=== PATIENT | female | born 1960 | race Caucasian/White ===

== ENCOUNTER 2017-04-08 06:09 | Day surgery (SDC) | payer MEDICARE, OTHER ==
[~2017-04-08] VITALS: Ht 170.2 cm; Wt 97.1 kg
[~2017-04-08 06:09] MED LIST: ATOR10 PO; Apap-Butalbita1 EACH PO; BENTYL10 MG PO; CLON.2 PO; CONEST.625 PO; DIAZ10 PO; DIAZ5 PO; Desyrel150 MG PO; Dicyclomine HCl10 MG PO; ESOM20 PO; ESTR.1TPBW TOP; ETOD200 PO; ETOD500CR PO; GABA600 PO; LAMICTAL PO; LAMICTAL XR200 MG PO; LORA1 PO; LORA10 PO; Loxapine10 MG PO; Loxapine25 MG PO; MELA3 PO; MELATONIN 20MG PO; MYRBETRIQ50 MG PO; NAPR220 PO; NEXIUM 24HR20 MG PO; NEXIUM 40MG PO; Omeprazole20 M1 PO; PROC10 PO; QNASL8.7 GM PO; QUET200 PO; RIZATRIPTAN10 M1 PO; RIZATRIPTAN10 MG; ROPI.25 PO; SEROQUEL 400 MG PO; TOPI100 PO; Tessalon200 MG PO; Vivelle-Dot1 EAC1 TD
[2017-04-08] MEDS ORDERED: HYDPAM50 PO (06:47)
[2017-04-08] MEDS ORDERED: CYCL10 (06:48)
[2017-04-09] MEDS ORDERED: DOCU100 PO (08:50)
[2017-04-09] MEDS ORDERED: HYDR1TAB94 PO (08:50)
[2017-04-09] MEDS ORDERED: LEVFLO500 PO (08:50)
== END 2017-04-09 10:05 | disposition home or self-care (01) ==
LOC: ORSCMMR 06:09 → SURS 08:43
PROVIDERS: Urology
PROC: 0TSD0ZZ Reposition Urethra, Open Approach (ICD-10-PCS; principal; 2017-04-08 07:30)
DX: N39.3 Stress incontinence (female) (male) (principal); J44.9 Chronic obstructive pulmonary disease, unspecified; F17.210 Nicotine dependence, cigarettes, uncomplicated; F31.9 Bipolar disorder, unspecified; M79.7 Fibromyalgia; E66.9 Obesity, unspecified; Z68.34 Body mass index [BMI] 34.0-34.9, adult; Z79.899 Other long term (current) drug therapy
CPT/HCPCS: C1771; J0690; J1100; J1580; J1885; J2250; J2405; J3010; J7120

== ENCOUNTER → 2018-09-08 | Outpatient (CLI) | payer MEDICARE, OTHER ==
[~2018-09-08] MED LIST changes: +CYCL10; +DOCU100 PO; +HYDPAM50 PO; +HYDR1TAB94 PO; +LEVFLO500 PO
[2018-09-08 10:59] LABS: BASOPHILS ABSOLUTE AUTO 0.03 K/mm3 (0.00-0.23); BASOPHILS PERCENT AUTO 0 % (0-2); EOSINOPHILS ABSOLUTE AUTO 0.29 K/mm3 (0.00-0.68); EOSINOPHILS PERCENT AUTO 4 % (0-6); Hematocrit 42.4 % (33.0-51.0); Hemoglobin 14.6 g/dL (11.5-16.0); IMMATURE GRAN ABSOLUTE AUTO 0.02 K/mm3 (0.00-0.10); IMMATURE GRAN PERCENT AUTO 0 % (0-1); LYMPHOCYTES ABSOLUTE AUTO 2.95 K/mm3 (0.84-5.20); LYMPHOCYTES PERCENT AUTO 39 % (21-46); MONOCYTES ABSOLUTE AUTO 0.57 K/mm3 (0.16-1.47); MONOCYTES PERCENT AUTO 8 % (4-13); Mean Corpuscular HGB Conc 34.4 g/dL (31.5-36.5); Mean Corpuscular Volume 99 fL (80-100); Mean Platelet Volume 8.4 fL (9.1-12.4); NEUTROPHILS ABSOLUTE AUTO 3.68 K/mm3 (1.96-9.15); NEUTROPHILS PERCENT AUTO 49 % (41-73); Platelet Count 242 K/mm3 (150-400); RDW Coefficient Variation 11.9 % (11.7-14.2); RDW Standard Deviation 43.6 fL (35.1-46.3); White Blood Cell Count 7.54 K/mm3 (4.00-11.30)
[2018-09-08 11:17] LABS: Albumin/Globulin Ratio 1.3 (0.8-1.8); Bilirubin, Total 0.1 mg/dL (0.1-1.0); Bun/Creatinine Ratio 12.4 (12.0-20.0); Calcium, Blood 9.4 mg/dL (8.5-10.1); Creatinine, Blood 1.05 mg/dL (0.40-1.00); Globulin, Blood 3.2 g/dL (2.2-4.0); Total Protein, Blood 7.2 g/dL (6.4-8.2)
== END | disposition home or self-care (01) ==
LOC: LAB SHORT 10:52 → LAB EV 10:52
PROVIDERS: Nurse Practitioner Family
DX: I95.89 Other hypotension (principal)
CPT/HCPCS: 80053; 85025

== ENCOUNTER 2019-04-08 08:49 | Emergency (ER) | payer MEDICARE, OTHER ==
[~2019-04-08] VITALS: Ht 170.2 cm; Wt 79.4 kg
[2019-04-08 09:33] LABS: BASOPHILS ABSOLUTE AUTO 0.03 K/mm3 (0.00-0.23); BASOPHILS PERCENT AUTO 1 % (0-2); EOSINOPHILS ABSOLUTE AUTO 0.31 K/mm3 (0.00-0.68); EOSINOPHILS PERCENT AUTO 5 % (0-6); Hematocrit 42.3 % (33.0-51.0); IMMATURE GRAN ABSOLUTE AUTO 0.01 K/mm3 (0.00-0.10); IMMATURE GRAN PERCENT AUTO 0 % (0-1); LYMPHOCYTES ABSOLUTE AUTO 2.67 K/mm3 (0.84-5.20); LYMPHOCYTES PERCENT AUTO 42 % (21-46); MONOCYTES ABSOLUTE AUTO 0.57 K/mm3 (0.16-1.47); MONOCYTES PERCENT AUTO 9 % (4-13); Mean Corpuscular HGB 34.4 pg (26.0-34.0); Mean Corpuscular HGB Conc 33.1 g/dL (31.5-36.5); Mean Corpuscular Volume 104 fL (80-100); Mean Platelet Volume 8.5 fL (9.1-12.4); NEUTROPHILS PERCENT AUTO 44 % (41-73); Platelet Count 248 K/mm3 (150-400); RDW Coefficient Variation 11.6 % (11.7-14.2); RDW Standard Deviation 44.3 fL (35.1-46.3); Red Blood Cell Count 4.07 M/mm3 (3.80-5.20); White Blood Cell Count 6.39 K/mm3 (4.00-11.30)
[2019-04-08] MEDS ORDERED: OMEP20ER PO (09:33)
[2019-04-08] MEDS ORDERED: Trazodone HCl300 MG PO (09:33)
[2019-04-08] MEDS ORDERED: ATOR40TA PO (09:33)
[2019-04-08] MEDS ORDERED: DIAZ10 PO (09:33)
[2019-04-08] MEDS ORDERED: Requip3 MG PO (09:34)
[2019-04-08] MEDS ORDERED: LAMICTAL XR200 MG PO (09:34)
[2019-04-08] MEDS ORDERED: GABAPENTIN600 MG PO (09:35)
[2019-04-08] MEDS ORDERED: DOXE25 PO (09:36)
[2019-04-08] MEDS ORDERED: PROM25 PO (09:37)
[2019-04-08] MEDS ORDERED: Dicyclomine HCl10 MG PO (09:37)
[2019-04-08] MEDS ORDERED: Imitrex100 MG PO (09:37)
[2019-04-08] MEDS ORDERED: Ativan1 MG PO (09:37)
[2019-04-08] MEDS ORDERED: CYCL10 PO (09:38)
[2019-04-08] MEDS ORDERED: Sudogest60 MG PO (09:38)
[2019-04-08 09:51] LABS: Alanine Aminotransfer (ALT/SGP 37 U/L (12-78); Albumin, Blood 3.4 g/dL (3.4-5.0); Albumin/Globulin Ratio 1.1 (0.8-1.8); Alk Phos 44 U/L (50-136); Anion Gap 6 mmol/L (6-16); Aspartate Aminotrans (AST/SGOT 15 U/L (12-37); Bilirubin, Total 0.2 mg/dL (0.1-1.0); Blood Urea Nitrogen 19 mg/dL (8-24); Bun/Creatinine Ratio 23.8 (12.0-20.0); CO2, Blood 26 mmol/L (21-32); Calcium, Blood 8.9 mg/dL (8.5-10.1); Chloride, Blood 109 mmol/L (98-108); Globulin, Blood 3.1 g/dL (2.2-4.0); Glomerular Filtration Rate >60 (60-); Glucose, Blood 112 mg/dL (70-99); Magnesium, Blood 1.9 mg/dL (1.6-2.4); Sodium, Blood 141 mmol/L (136-145); Total Protein, Blood 6.5 g/dL (6.4-8.2)
== END 2019-04-08 11:08 | disposition home or self-care (01) ==
LOC: ER 08:49
PROVIDERS: Emergency Medicine
DX: R55 Syncope and collapse (principal); S16.1XXA Strain of muscle, fascia and tendon at neck level, initial encounter; S09.90XA Unspecified injury of head, initial encounter; S09.93XA Unspecified injury of face, initial encounter; Z79.899 Other long term (current) drug therapy; F31.9 Bipolar disorder, unspecified; Z86.73 Personal history of transient ischemic attack (TIA), and cerebral infarction without residual deficits; F17.210 Nicotine dependence, cigarettes, uncomplicated; W18.30XA Fall on same level, unspecified, initial encounter
CPT/HCPCS: 70450; 72070; 72100; 72125; 80053; 83735; 85025; 93005; 93010; 96374; 96375; 99285-25; J2405; J3010

== ENCOUNTER → 2019-08-27 | Outpatient (CLI) | payer MEDICARE, OTHER ==
[~2019-08-27] MED LIST changes: +ATOR40TA PO; +Ativan1 MG PO; +CYCL10 PO; +DOXE25 PO; +GABAPENTIN600 MG PO; +Imitrex100 MG PO; +OMEP20ER PO; +PROM25 PO; +Requip3 MG PO; +Sudogest60 MG PO; +Trazodone HCl300 MG PO
[2019-08-27 10:58] LABS: Bun/Creatinine Ratio 16.7 (12.0-20.0); Creatinine, Blood 1.08 mg/dL (0.40-1.00); Potassium, Blood 4.1 mmol/L (3.5-5.5)
== END | disposition home or self-care (01) ==
LOC: LAB SHORT 10:44 → LAB EV 10:44
PROVIDERS: Physician Assistant
DX: K04.7 Periapical abscess without sinus (principal)
CPT/HCPCS: 80048

== ENCOUNTER → 2019-12-17 | Outpatient (CLI) | payer MEDICARE, OTHER ==
[2019-12-17 11:20] LABS: Albumin, Blood 3.9 g/dL (3.4-5.0); Anion Gap 11 mmol/L (6-16); Blood Urea Nitrogen 11 mg/dL (8-24); Bun/Creatinine Ratio 10.7 (12.0-20.0); CO2, Blood 25 mmol/L (21-32); Chloride, Blood 102 mmol/L (98-108); Creatinine, Blood 1.03 mg/dL (0.40-1.00); Glomerular Filtration Rate 55 (60-); Glucose, Blood 120 mg/dL (70-99); Phosphorus, Blood 3.4 mg/dL (2.5-4.9); Potassium, Blood 4.2 mmol/L (3.5-5.5); Sodium, Blood 138 mmol/L (136-145)
== END | disposition home or self-care (01) ==
LOC: RAD SHORT 10:52 → LAB EV 10:52
PROVIDERS: Nurse Practitioner Family
DX: R94.4 Abnormal results of kidney function studies (principal)
CPT/HCPCS: 36415; 80069

== ENCOUNTER 2019-12-28 07:03 | Day surgery (SDC) | payer MEDICARE, OTHER | END 2019-12-28 22:40 | disposition home or self-care (01) | LOC: ORSCMMR 07:03 | PROC: 0W3P8ZZ Control Bleeding in Gastrointestinal Tract, Via Natural or Artificial Opening Endoscopic (ICD-10-PCS; principal; 2019-12-28) | PROC: 0DB58ZX Excision of Esophagus, Via Natural or Artificial Opening Endoscopic, Diagnostic (ICD-10-PCS; principal; 2019-12-28) | PROC: 0DB48ZX Excision of Esophagogastric Junction, Via Natural or Artificial Opening Endoscopic, Diagnostic (ICD-10-PCS; principal; 2019-12-28) | PROC: 0DB78ZX Excision of Stomach, Pylorus, Via Natural or Artificial Opening Endoscopic, Diagnostic (ICD-10-PCS; principal; 2019-12-28) | PROC: 0DBN8ZX Excision of Sigmoid Colon, Via Natural or Artificial Opening Endoscopic, Diagnostic (ICD-10-PCS; principal; 2019-12-28) | DX: R13.14 Dysphagia, pharyngoesophageal phase (principal); K62.5 Hemorrhage of anus and rectum; B37.81 Candidal esophagitis; D12.5 Benign neoplasm of sigmoid colon; K21.9 Gastro-esophageal reflux disease without esophagitis; R10.13 Epigastric pain; R11.0 Nausea; K25.4 Chronic or unspecified gastric ulcer with hemorrhage; K64.8 Other hemorrhoids; K64.4 Residual hemorrhoidal skin tags; Z86.010 Personal history of colon polyps; Z86.73 Personal history of transient ischemic attack (TIA), and cerebral infarction without residual deficits; F31.9 Bipolar disorder, unspecified; F17.210 Nicotine dependence, cigarettes, uncomplicated; Z79.899 Other long term (current) drug therapy ==

== ENCOUNTER 2020-03-01 06:59 | Day surgery (SDC) | payer MEDICARE, OTHER ==
[~2020-03-01] VITALS: Ht 170.2 cm; Wt 98.7 kg
[~2020-03-01 06:59] MED LIST changes: +QUET300 PO
[2020-03-01] MEDS ORDERED: LINZESS72 MCG PO (07:23)
--- NOTE | 2020-03-01 07:28 | NUR ---
PT ADMITTED TO [facility]. AGREES WITH PLANNED PROCEDURE. LUNG SOUNDS CLEAR.
--- NOTE | 2020-03-01 08:03 | NUR ---
03/01/20 0803 Mena Nicole History, Chart, Medications and Allergies reviewed before start of procedure. PATIENT CONFIRMS NPO STATUS AND AGREES WITH SCHEDULED PROCEDURE. MONITOR INTACT WITH CONTINUOUS PULSE OXIMETRY AND INTERMITTENT BP. O2 VIA N/C INTACT THROUGHOUT SEDATION/PROCEDURE. 3-LEAD EKG REVIEWED WITH PHYSICIAN PRIOR TO START OF PROCEDURE. PATIENT DETERMINED TO BE ASA APPROPRIATE FOR PROPOFOL SEDATION PRIOR TO START OF PROCEDURE BY DR. CRANE. Bite Block Placed. HURRICAINE SPRAY TO OROPHARYX.
--- NOTE | 2020-03-01 08:53 | NUR ---
Patient up to Ambulate independently. Gait steady. Discharge instructions reviewed with patient. Patient verbalizes understanding. Copy given to patient to take home. Patient States Post-Procedure ride home has been arranged. Discharged via wheelchair to private car for ride home. SPOKE WITH DR CRANE IN REGARDS TO PT ABD PAIN. OFFERED TO GIVE NAUSEA MED, PT SAID SHE HAS NAUSEA MED AT HOME. INTSTRUCTED PT TO TAKE TYLENOL AND NAUSEA MEDICINE AT HOME. INSTRUCTED TO CALL DR CRANE WITH ANY INCREASED CHANGES.
== END 2020-03-01 09:00 | disposition home or self-care (01) ==
LOC: ORSCMMR 06:59 → ORD 08:00 → ORSCMMR 09:00
PROVIDERS: Internal Medicine Gastroenterology
PROC: 0DB98ZX Excision of Duodenum, Via Natural or Artificial Opening Endoscopic, Diagnostic (ICD-10-PCS; principal; 2020-03-01 08:00)
PROC: 0DB68ZX Excision of Stomach, Via Natural or Artificial Opening Endoscopic, Diagnostic (ICD-10-PCS; principal; 2020-03-01 08:00)
DX: R13.10 Dysphagia, unspecified (principal); K25.4 Chronic or unspecified gastric ulcer with hemorrhage; K26.4 Chronic or unspecified duodenal ulcer with hemorrhage; F31.9 Bipolar disorder, unspecified; Z86.73 Personal history of transient ischemic attack (TIA), and cerebral infarction without residual deficits; Z79.899 Other long term (current) drug therapy; F17.210 Nicotine dependence, cigarettes, uncomplicated
CPT/HCPCS: 88305; 88342; J2704; J7120

== ENCOUNTER 2020-05-22 08:39 | Day surgery (SDC) | payer MEDICARE, OTHER ==
[~2020-05-22] VITALS: Ht 170.2 cm; Wt 104.0 kg
[~2020-05-22 08:39] MED LIST changes: +LINZESS72 MCG PO; +NURTEC ODT75 MG PO
--- NOTE | 2020-05-22 09:52 | NUR ---
Ambulatory in Day Surgery History, Chart, Medications and Allergies reviewed before start of procedure. Lungs clear T/O to Auscultation. Patient confirms NPO status and agrees with scheduled surgery. Pre-Op teaching done. Pt verbalizes understanding. Patient States Post-Procedure ride home has been arranged.
--- NOTE | 2020-05-22 09:56 | NUR ---
05/22/20 0956 Jane Ho PATIENT DETERMINED TO BE ASA APPROPRIATE FOR PROPOFOL SEDATION PRIOR TO START OF PROCEDURE BY DR. CRANE. 3-LEAD EKG REVIEWED WITH PHYSICIAN PRIOR TO START OF PROCEDURE. PATIENT CONFIRMS NPO STATUS AND AGREES WITH SCHEDULED PROCEDURE. History, Chart, Medications and Allergies reviewed before start of procedure. MONITOR INTACT WITH CONTINUOUS PULSE OXIMETRY AND INTERMITTENT BP. O2 VIA POM @ 10L INTACT THROUGHOUT SEDATION/PROCEDURE.
[2020-05-22 11:16] LABS: Hematocrit 41.7 % (33.0-51.0); Hemoglobin 13.7 g/dL (11.5-16.0); Mean Corpuscular HGB 33.1 pg (26.0-34.0); Mean Corpuscular HGB Conc 32.9 g/dL (31.5-36.5); Mean Corpuscular Volume 101 fL (80-100); Mean Platelet Volume 8.2 fL (9.1-12.4); Platelet Count 258 K/mm3 (150-400); RDW Coefficient Variation 12.9 % (11.7-14.2); RDW Standard Deviation 47.8 fL (35.1-46.3); Red Blood Cell Count 4.14 M/mm3 (3.80-5.20); White Blood Cell Count 6.41 K/mm3 (4.00-11.30)
== END 2020-05-22 11:36 | disposition home or self-care (01) ==
LOC: ORSCMMR 08:39 → ORD 08:39 → ORSCMMR 08:40 → ORD 09:30
PROVIDERS: Internal Medicine Gastroenterology
PROC: 0D758ZZ Dilation of Esophagus, Via Natural or Artificial Opening Endoscopic (ICD-10-PCS; principal; 2020-05-22 09:30)
PROC: 0DB78ZX Excision of Stomach, Pylorus, Via Natural or Artificial Opening Endoscopic, Diagnostic (ICD-10-PCS; principal; 2020-05-22 09:30)
PROC: 0DB58ZX Excision of Esophagus, Via Natural or Artificial Opening Endoscopic, Diagnostic (ICD-10-PCS; principal; 2020-05-22 09:30)
DX: R10.13 Epigastric pain (principal); B37.81 Candidal esophagitis; K29.70 Gastritis, unspecified, without bleeding; K25.4 Chronic or unspecified gastric ulcer with hemorrhage; Z86.73 Personal history of transient ischemic attack (TIA), and cerebral infarction without residual deficits; F31.9 Bipolar disorder, unspecified; Z79.899 Other long term (current) drug therapy; F17.210 Nicotine dependence, cigarettes, uncomplicated
CPT/HCPCS: 85027; 88305; 88312; A9270; C1726; J2250; J2405; J2704; J7120

== ENCOUNTER → 2020-10-30 | Outpatient (CLI) | payer MEDICARE, OTHER ==
[~2020-10-30] MED LIST changes: +EMGALITY120 MG/1 M SC; +LAMOTRIGINE100 M1 PO; +Norco 5-325 Ta1 EACH PO; +PALIPERIDONE ER6 MG PO; +PANTOPRAZOLE SO40 M2 PO; +QUETIAPINE FUM200 M6 PO; +TRAZ150T57 PO; +UBRELVY100 MG PO; +XARELTO20 MG PO
[2020-10-30 12:47] LABS: BASOPHILS ABSOLUTE AUTO 0.02 K/mm3 (0.00-0.23); BASOPHILS PERCENT AUTO 0 % (0-2); EOSINOPHILS ABSOLUTE AUTO 0.11 K/mm3 (0.00-0.68); EOSINOPHILS PERCENT AUTO 2 % (0-6); Hematocrit 45.2 % (33.0-51.0); IMMATURE GRAN ABSOLUTE AUTO 0.02 K/mm3 (0.00-0.10); IMMATURE GRAN PERCENT AUTO 0 % (0-1); LYMPHOCYTES ABSOLUTE AUTO 2.19 K/mm3 (0.84-5.20); LYMPHOCYTES PERCENT AUTO 39 % (21-46); MONOCYTES ABSOLUTE AUTO 0.42 K/mm3 (0.16-1.47); MONOCYTES PERCENT AUTO 7 % (4-13); Mean Corpuscular HGB 33.7 pg (26.0-34.0); Mean Corpuscular HGB Conc 33.2 g/dL (31.5-36.5); Mean Corpuscular Volume 102 fL (80-100); Mean Platelet Volume 8.5 fL (9.1-12.4); NEUTROPHILS PERCENT AUTO 51 % (41-73); Platelet Count 259 K/mm3 (150-400); RDW Standard Deviation 45.7 fL (35.1-46.3); Red Blood Cell Count 4.45 M/mm3 (3.80-5.20); White Blood Cell Count 5.66 K/mm3 (4.00-11.30)
[2020-10-30 13:00] LABS: Albumin, Blood 3.9 g/dL (3.4-5.0); Bilirubin, Total 0.3 mg/dL (0.1-1.0); Bun/Creatinine Ratio 11.8 (12.0-20.0); Calcium, Blood 9.9 mg/dL (8.5-10.1); Creatinine, Blood 1.02 mg/dL (0.40-1.00); Globulin, Blood 3.9 g/dL (2.2-4.0); Potassium, Blood 4.4 mmol/L (3.5-5.5); Total Protein, Blood 7.8 g/dL (6.4-8.2)
== END | disposition home or self-care (01) ==
LOC: LAB 12:02 → LAB SHORT 12:02
PROVIDERS: Internal Medicine
DX: R10.9 Unspecified abdominal pain (principal)
CPT/HCPCS: 36415; 80053; 85025

== ENCOUNTER 2020-11-09 10:34 | Observation (INO) | payer MEDICARE, OTHER ==
[~2020-11-09] VITALS: Ht 172.7 cm; Wt 104.3 kg
[~2020-11-09 10:34] MED LIST changes: -EMGALITY120 MG/1 M SC; -LAMOTRIGINE100 M1 PO; -Norco 5-325 Ta1 EACH PO; -PALIPERIDONE ER6 MG PO; -PANTOPRAZOLE SO40 M2 PO; -QUETIAPINE FUM200 M6 PO; -TRAZ150T57 PO; -UBRELVY100 MG PO; -XARELTO20 MG PO
[2020-11-09 10:57] LABS: BASOPHILS ABSOLUTE AUTO 0.03 K/mm3 (0.00-0.23); BASOPHILS PERCENT AUTO 1 % (0-2); EOSINOPHILS ABSOLUTE AUTO 0.15 K/mm3 (0.00-0.68); EOSINOPHILS PERCENT AUTO 3 % (0-6); Hematocrit 42.5 % (33.0-51.0); Hemoglobin 13.9 g/dL (11.5-16.0); IMMATURE GRAN ABSOLUTE AUTO 0.01 K/mm3 (0.00-0.10); IMMATURE GRAN PERCENT AUTO 0 % (0-1); LYMPHOCYTES ABSOLUTE AUTO 2.45 K/mm3 (0.84-5.20); LYMPHOCYTES PERCENT AUTO 48 % (21-46); MONOCYTES ABSOLUTE AUTO 0.41 K/mm3 (0.16-1.47); MONOCYTES PERCENT AUTO 8 % (4-13); Mean Corpuscular HGB 33.5 pg (26.0-34.0); Mean Corpuscular HGB Conc 32.7 g/dL (31.5-36.5); Mean Corpuscular Volume 102 fL (80-100); Mean Platelet Volume 8.5 fL (9.1-12.4); NEUTROPHILS ABSOLUTE AUTO 2.04 K/mm3 (1.96-9.15); NEUTROPHILS PERCENT AUTO 40 % (41-73); Platelet Count 223 K/mm3 (150-400); RDW Coefficient Variation 12.1 % (11.7-14.2); RDW Standard Deviation 45.8 fL (35.1-46.3); Red Blood Cell Count 4.15 M/mm3 (3.80-5.20); White Blood Cell Count 5.09 K/mm3 (4.00-11.30)
[2020-11-09 11:15] LABS: Alanine Aminotransfer (ALT/SGP 33 U/L (12-78); Albumin, Blood 3.3 g/dL (3.4-5.0); Alk Phos 46 U/L (50-136); Anion Gap 6 mmol/L (6-16); Aspartate Aminotrans (AST/SGOT 21 U/L (12-37); Bilirubin, Total 0.2 mg/dL (0.1-1.0); Blood Urea Nitrogen 15 mg/dL (8-24); Bun/Creatinine Ratio 15.5 (12.0-20.0); CO2, Blood 22 mmol/L (21-32); Calcium, Blood 8.8 mg/dL (8.5-10.1); Chloride, Blood 112 mmol/L (98-108); Creatinine, Blood 0.97 mg/dL (0.40-1.00); Ethanol (Alcohol), Blood, Med <3 mg/dL; Globulin, Blood 3.3 g/dL (2.2-4.0); Glomerular Filtration Rate 59 (60-); Glucose, Blood 107 mg/dL (70-99); Potassium, Blood 4.3 mmol/L (3.5-5.5); Sodium, Blood 140 mmol/L (136-145); Total Protein, Blood 6.6 g/dL (6.4-8.2); Troponin I <0.015 ng/mL (0.000-0.040)
[2020-11-09] MEDS ORDERED: LAMOTRIGINE100 M1 PO (12:16)
[2020-11-09] MEDS ORDERED: QUETIAPINE FUM200 M6 PO (12:16)
[2020-11-09] MEDS ORDERED: TRAZ150T57 PO (12:16)
[2020-11-09] MEDS ORDERED: EMGALITY120 MG/1 M SC (12:16)
[2020-11-09] MEDS ORDERED: PALIPERIDONE ER6 MG PO (12:30)
[2020-11-09] MEDS ORDERED: UBRELVY100 MG PO (12:32)
[2020-11-09] MEDS ORDERED: PANTOPRAZOLE SO40 M2 PO (13:00)
[2020-11-10] MEDS ORDERED: XARELTO20 MG PO (12:59)
[2020-11-10] MEDS ORDERED: Norco 5-325 Ta1 EACH PO (12:59)
== END 2020-11-10 14:10 | disposition home or self-care (01) ==
LOC: ER 10:34 → SURS 10:35
PROVIDERS: Emergency Medicine; Orthopaedic Surgery; ADMIT Student in an Organized Health Care Education/Training Program
PROC: 0QSH04Z Reposition Left Tibia with Internal Fixation Device, Open Approach (ICD-10-PCS; principal; 2020-11-09 13:30)
DX: S82.302A Unspecified fracture of lower end of left tibia, initial encounter for closed fracture (principal); S82.832A Other fracture of upper and lower end of left fibula, initial encounter for closed fracture; W19.XXXA Unspecified fall, initial encounter; F41.9 Anxiety disorder, unspecified; J44.9 Chronic obstructive pulmonary disease, unspecified; E66.9 Obesity, unspecified; R73.03 Prediabetes; R42 Dizziness and giddiness; F17.210 Nicotine dependence, cigarettes, uncomplicated; Z68.35 Body mass index [BMI] 35.0-35.9, adult
CPT/HCPCS: 27825; 36415; 71045; 73560-LT; 73600; 80053; 83690; 83880; 84484; 85025; 93005; 93010; 96365; 96366; 96374-59; 96375-59; 97110; 97162; 99152; 99285-25; A9270; C1713; G0378; G0480; J0690; J1100; J1170; J1630; J1650; J1885; J2060; J2250; J2370; J2405; J2704; J2795; J3010; J7030; J7120

== ENCOUNTER → 2021-09-19 | Outpatient (CLI) | payer MEDICARE, OTHER ==
[~2021-09-19] MED LIST changes: +EMGALITY120 MG/1 M SC; +LAMOTRIGINE100 M1 PO; +Norco 5-325 Ta1 EACH PO; +PALIPERIDONE ER6 MG PO; +PANTOPRAZOLE SO40 M2 PO; +QUETIAPINE FUM200 M6 PO; +TRAZ150T57 PO; +UBRELVY100 MG PO; +XARELTO20 MG PO
== END | disposition home or self-care (01) ==
LOC: LAB SHORT 17:06 → LAB 17:06
DX: N39.0 Urinary tract infection, site not specified (principal); R10.9 Unspecified abdominal pain
CPT/HCPCS: 87086

== ENCOUNTER → 2022-02-28 | Outpatient (CLI) | payer MEDICARE, OTHER ==
[~2022-02-28] MED LIST changes: +ABILIFY MYCITE10 M2 PO; +CLIMARA1 EACH PO; +DONEPEZIL HCL10 MG PO; +FAMO20 PO; +MIDO5 PO; +ROPINIROLE HCL3 M2 PT; +ZONI100 PO
[2022-02-28 15:50] LABS: BASOPHILS ABSOLUTE AUTO 0.03 K/mm3 (0.00-0.23); BASOPHILS PERCENT AUTO 1 % (0-2); EOSINOPHILS ABSOLUTE AUTO 0.18 K/mm3 (0.00-0.68); EOSINOPHILS PERCENT AUTO 4 % (0-6); Hematocrit 39.2 % (33.0-51.0); Hemoglobin 13.5 g/dL (11.5-16.0); IMMATURE GRAN PERCENT AUTO 0 % (0-1); LYMPHOCYTES ABSOLUTE AUTO 2.22 K/mm3 (0.84-5.20); LYMPHOCYTES PERCENT AUTO 49 % (21-46); MONOCYTES ABSOLUTE AUTO 0.39 K/mm3 (0.16-1.47); MONOCYTES PERCENT AUTO 9 % (4-13); Mean Corpuscular HGB 34.8 pg (26.0-34.0); Mean Corpuscular HGB Conc 34.4 g/dL (31.5-36.5); Mean Corpuscular Volume 101 fL (80-100); Mean Platelet Volume 8.8 fL (9.1-12.4); NEUTROPHILS ABSOLUTE AUTO 1.75 K/mm3 (1.96-9.15); NEUTROPHILS PERCENT AUTO 38 % (41-73); Platelet Count 208 K/mm3 (150-400); RDW Coefficient Variation 12.4 % (11.7-14.2); RDW Standard Deviation 46.8 fL (35.1-46.3); Red Blood Cell Count 3.88 M/mm3 (3.80-5.20); White Blood Cell Count 4.57 K/mm3 (4.00-11.30)
[2022-02-28 17:33] LABS: Bun/Creatinine Ratio 12.5 (12.0-20.0); Calcium, Blood 8.8 mg/dL (8.5-10.1); Creatinine, Blood 0.8 mg/dL (0.40-1.00); Potassium, Blood 4.1 mmol/L (3.5-5.5)
== END | disposition home or self-care (01) ==
LOC: LAB SHORT 13:59 → LAB 13:59
PROVIDERS: Orthopaedic Surgery
DX: Z01.818 Encounter for other preprocedural examination (principal); M25.572 Pain in left ankle and joints of left foot; Z96.9 Presence of functional implant, unspecified
CPT/HCPCS: 36415; 80048; 85025

== ENCOUNTER 2022-03-03 11:17 | Day surgery (SDC) | payer MEDICARE, OTHER ==
[~2022-03-03] VITALS: Ht 170.2 cm; Wt 80.0 kg
[~2022-03-03 11:17] MED LIST changes: -ABILIFY MYCITE10 M2 PO; -CLIMARA1 EACH PO; -DONEPEZIL HCL10 MG PO; -FAMO20 PO; -MIDO5 PO; -ROPINIROLE HCL3 M2 PT; -ZONI100 PO
[2022-03-03] MEDS ORDERED: DONEPEZIL HCL10 MG PO (13:22)
[2022-03-03] MEDS ORDERED: CLIMARA1 EACH PO (13:22)
[2022-03-03] MEDS ORDERED: MIDO5 PO (13:23)
[2022-03-03] MEDS ORDERED: FAMO20 PO (13:23)
[2022-03-03] MEDS ORDERED: ROPINIROLE HCL3 M2 PT (13:24)
[2022-03-03] MEDS ORDERED: HYDPAM50 PO (13:25)
[2022-03-03] MEDS ORDERED: ZONI100 PO (13:26)
[2022-03-03] MEDS ORDERED: ABILIFY MYCITE10 M2 PO (13:26)
--- NOTE | 2022-03-03 14:00 | NUR ---
History, Chart, Medications and Allergies reviewed before start of procedure. Lungs clear T/O to Auscultation. Patient confirms NPO status and agrees with scheduled surgery. Pre-Op teaching done. Pt verbalizes understanding. Patient reports completing Chlorhexadine shower X2 prior to admission to hospital.
--- NOTE | 2022-03-03 16:52 | NUR ---
PT TAKING SIPS OF FLUID. CMS INTACT TO LEFT ANKLE, MOVES TOES WELL.
--- NOTE | 2022-03-03 17:03 | NUR ---
Pt reports ready to get up and use the bathroom and get dressed. Iv dc intact. Pt to bathroom via wheelchair and assisted by Mariah Messina rn.
--- NOTE | 2022-03-03 17:16 | NUR ---
Patient States Post-Procedure ride home has been arranged. Discharge instructions reviewed with patient. Patient verbalizes understanding. Copy given to patient to take home. Discharged via wheelchair to private car for ride home. PT HOME WITH S/O. PT VERY APPRECIATED OF CARE
== END 2022-03-03 23:31 | disposition home or self-care (01) ==
LOC: ORSCMMR 11:17 → ORD 14:15 → ORSCMMR 14:15 → ORSCSDS 03-26 11:30
PROVIDERS: Orthopaedic Surgery
PROC: 0QPH04Z Removal of Internal Fixation Device from Left Tibia, Open Approach (ICD-10-PCS; principal; 2022-03-03 14:15)
DX: T84.9XXA Unspecified complication of internal orthopedic prosthetic device, implant and graft, initial encounter (principal); F17.210 Nicotine dependence, cigarettes, uncomplicated; G47.33 Obstructive sleep apnea (adult) (pediatric); E11.9 Type 2 diabetes mellitus without complications; Z86.73 Personal history of transient ischemic attack (TIA), and cerebral infarction without residual deficits; F31.9 Bipolar disorder, unspecified; Z79.899 Other long term (current) drug therapy
CPT/HCPCS: J0690; J1100; J1885; J2250; J2405; J2704; J2765; J3010; J7120

== ENCOUNTER 2022-08-12 08:17 | Inpatient (IN) | payer MEDICARE, OTHER ==
[~2022-08-12] VITALS: Ht 170.2 cm; Wt 86.3 kg
[2022-08-12] VITALS (47 sets, daily range): BP systolic 72–150; BP diastolic 45–119
[~2022-08-12 08:17] MED LIST changes: +ABILIFY MYCITE10 M2 PO; +CLIMARA1 EACH PO; +DONEPEZIL HCL10 MG PO; +FAMO20 PO; +MIDO5 PO; +ROPINIROLE HCL3 M2 PO; +ZONI100 PO
[2022-08-12 08:40] LABS: Calcium, Ionized (POC) 1.14 mmol/L (1.10-1.46); Chloride (POC) 106 mmol/L (98-108); Creatinine (POC) 1.1 mg/dL (0.6-1.0); Glucose (ISTAT POC) 229 mg/dL (70-99); Hemoglobin (POC) 13.9 g/dL (12.0-16.0); Potassium (POC) 7.6 mmol/L (3.5-5.5); Sodium (POC) 133 mmol/L (135-148); Total CO2 (POC) 18 mmol/L (21-32)
[2022-08-12 08:49] LABS: BASOPHILS ABSOLUTE AUTO 0.03 K/mm3 (0.00-0.23); BASOPHILS PERCENT AUTO 1 % (0-2); EOSINOPHILS ABSOLUTE AUTO 0.07 K/mm3 (0.00-0.68); EOSINOPHILS PERCENT AUTO 1 % (0-6); Hematocrit 40.2 % (33.0-51.0); Hemoglobin 12.9 g/dL (11.5-16.0); IMMATURE GRAN ABSOLUTE AUTO 0.09 K/mm3 (0.00-0.10); IMMATURE GRAN PERCENT AUTO 1 % (0-1); LYMPHOCYTES PERCENT AUTO 59 % (21-46); MONOCYTES ABSOLUTE AUTO 0.35 K/mm3 (0.16-1.47); MONOCYTES PERCENT AUTO 6 % (4-13); Mean Corpuscular HGB 34.1 pg (26.0-34.0); Mean Corpuscular HGB Conc 32.1 g/dL (31.5-36.5); Mean Corpuscular Volume 106 fL (80-100); Mean Platelet Volume 8.5 fL (9.1-12.4); NEUTROPHILS ABSOLUTE AUTO 2.03 K/mm3 (1.96-9.15); NEUTROPHILS PERCENT AUTO 32 % (41-73); Platelet Count 197 K/mm3 (150-400); RDW Coefficient Variation 12.6 % (11.7-14.2); RDW Standard Deviation 49.8 fL (35.1-46.3); Red Blood Cell Count 3.78 M/mm3 (3.80-5.20); White Blood Cell Count 6.27 K/mm3 (4.00-11.30)
[2022-08-12 09:27] LABS: D-Dimer, Quantitative 8.56 mg/L FEU (0.00-0.52); International Normalized Ratio 1.04; Prothrombin Time Results 10.9 Sec (9.7-11.5)
[2022-08-12 09:42] LABS: Source, Urine Foley catheter
[2022-08-12 09:54] LABS: Appearance, Urine Hazy (Clear); Bilirubin, Urine Neg (Neg); Blood, Urine 3+ (Neg); Color, Urine Yellow (P-Yellow); Glucose Qualitative, Urine Neg (Neg); Ketones, Urine Neg (Neg); Leukocyte Esterase, Urine Neg (Neg); Nitrite, Urine Neg (Neg); Protein, Urine 3+ (Neg); Urobilinogen, Urine NORM (Normal)
[2022-08-12 09:58] LABS: Albumin, Blood 3.1 g/dL (3.4-5.0); Bilirubin, Total 0.3 mg/dL (0.1-1.0); Bun/Creatinine Ratio 13.7 (12.0-20.0); Calcium, Blood 8.3 mg/dL (8.5-10.1); Creatinine, Blood 0.95 mg/dL (0.40-1.00); Potassium, Blood 3.9 mmol/L (3.5-5.5); Total Protein, Blood 6.1 g/dL (6.4-8.2)
[2022-08-12 10:25] LABS: Squamous Epithelial Cells Few /hpf (Few); Transitional Epithelial Cells Mod /hpf (0-Rare)
[2022-08-12 10:27] LABS: Bacteria Many /hpf; Renal Epithelial Rare /hpf (0-Rare)
[2022-08-12 10:28] LABS: Red Blood Cells, Urine 25-50 /hpf (0-2)
[2022-08-12 10:29] LABS: Mucus Light (0-Heavy); U Amphetamine Screen Not Detected; U Barbituate Screen Not Detected; U Benzodiazapine Screen Not Detected; U Cannabinoids Screen Not Detected; U Cocaine Screen Not Detected; U Methadone Screen Not Detected; U Methamphetamine Screen Not Detected; U Opiates Screen DETECTED; U Phencyclidine Screen Not Detected
[2022-08-12 10:30] LABS: U Buprenorphine Screen Not Detected; U Oxycodone Screen Not Detected; U Propoxyphene Screen Not Detected
[2022-08-12] MEDS ORDERED: ONDA4ODT MM (10:59)
[2022-08-12] MEDS ORDERED: HYDACE10B PO (11:00)
--- NOTE | 2022-08-12 12:00 | NUR ---
INITIAL ASSESSMENT PATIENT INTUBATED AND STARTED ON PROPOFOL AT 20 MCG/ KG/ HOUR. MYOCLONIC JERKING NOTED. INTERNAL ROTATION OF ARMS/ HANDS AND PLANTAR FLEXION NOTED WITH JERKING. UPWARD GAZE NOTED. WHEN EYE FIRST NOTED R PUPIL LARGER THAN LEFT BUT THEN EQUALED OUT. INTERMITTENT CORNEAL REFLEX NOTED. L DISTAL TIBIA FX FROM FALL AT HOME DURING CARDIAC ARREST. L LEG SPLINTED IN ER. 7.[address]; 24 CM AT TEETH. LUNGS COARSE TO AUSCULTATION. VENT SETTINGS AC 12, TV 400, PEEP 5 AND 35% FIO2. PATIENT IN SR, HR IN THE 70S. SBP 80S TO 140S. OG TO LIS. TEMP PENA DRAINING YELLOW COLORED URINE. SIGNIGICANT OTHER, MALDONADO, OF 17 YEARS AT BEDSIDE. BED LOW, CALL LIGHT IN REACH. S.O. ORIENTED TO UNIT, ROOM AND CALL LIGHT. WILL CONTINUE TO MONITOR FREQUENTLY THROUGHOUT SHIFT.
--- NOTE | 2022-08-12 12:11 | NUR ---
DR. SWEENEY TO ROOM AT 1150 TO WITNESS MYOCLONIC JERKING MOVEMENTS AND INTERNAL ROTATION OF BILAT ARMS. DR. CORONA TO ROOM BY 1200. BOTH INFORMED THAT PATIENT HAD AMIO BOLUS IN ER AND THAT AMIO DRIP STARTED BUT THAT PATIENT BRADYING DOWN TO 40S SO AMIO DRIP STOPPED. SIGNIFICANT OTHER TO ROOM AND SPEAKING TO CJ GIRON AND PATEL.
[2022-08-12 12:42] LABS: PCO2 Arterial 40.4 mmHg (35-45); PO2 Arterial 88.3 mmHg (80-100); pH Blood Arterial 7.26 (7.35-7.45)
[2022-08-12 13:32] LABS: Bun/Creatinine Ratio 16.8 (12.0-20.0); Calcium, Blood 8.5 mg/dL (8.5-10.1); Creatinine, Blood 0.83 mg/dL (0.40-1.00); Potassium, Blood 4.1 mmol/L (3.5-5.5)
--- NOTE | 2022-08-12 16:19 | NUR ---
Pt. is intubated and is not responsive. SO is present and welcomes my visit. SO displays evidence of being alone, so facilitate a lengthy life review and establish rapport. Nurse Marah is working with the Pt. Prayed with Pt. and SO. SO verbalized gratitude for the spiritual care visit.
--- NOTE | 2022-08-12 19:14 | NUR ---
MD VISIT DR BRIONES INTO SEE PT. UNWRAPPED LEFT LOWER LEG AND THAN REWRAPPED WITH JC WRAP AND SPLINT. CAP REFILL TO TOES BRISK.
--- NOTE | 2022-08-12 19:19 | NUR ---
SHIFT SUMMARY PATIENT REMAINED VENTILATED AND ON SEDATION. PATIENT CONTINUED WITH MYOCLONIC JERKING BUT WAS SLIGHTLY IMPROVED WITH PRN ATIVAN AND PROPOFOL. UPWARD GAZE REMAINED. PATIENT JERKING INTERMITTENTLY AND WITH NURSE STIMULI. DECEREBRATE POSTURING NOTED WITH JERKING MOVEMENTS. COOLING BLANKET PLACED ON PATIENT HAS TEMP CONTINUES TO INCREASE; GOAL OF LESS THAN 98 DEGREES FAHRENHEIT. LUNGS REMAIN COARSE. VENT REMAINS AC 12, TV 400, PEEP 5 AND FIO2 35%. ETT ADVANCED FROM 24 TO 26 CM BY RT THIS SHIFT. HR 70S TO LOW 100S. SBP 70S TO 140S. DR. SWEENEY STATED TO INCREASE PROPOFOL MUCH CAN FOR JERKING MOVEMENTS WITH STILL KEEPING MAPS 65 AND GREATER. SCD TO R LEG. L LEG REMAINS SPLINTED. OG TO LIS. NO BM THIS SHIFT. GOOD URINE OUTPUT THIS SHIFT FROM PENA. NO CHANGES TO SKIN NOTED. PATIENT REPOSITIONED Q2H. LR INFUSING AT 150 MLS/ HOUR AND PROPOFOL AT 35 MCG/ KG/ MINUTE. KEPPRA IV GIVEN THIS SHIFT AND ORDERED BID. ECHO PERFORMED THIS SHIFT. BED LOW, CALL LIGHT IN REACH. S.O. WENT HOME FOR THE NIGHT. REPORT GIVEN TO ASSUMING PHARMACY ASSOCIATE NURSE.
--- NOTE | 2022-08-12 19:55 | NUR ---
ASSESSMENT/ASSUMED CARE PT INTUBATED AND SEDATED. MYOCLONIC JERKING WITH INTERNAL ROTATION TO BILAT ARMS NOTED. NONRESPONSIVE EXCEPT INCREASED JERKING WITH STIMULI. MED WITH ATIVAN 2 MG. RIGHT PUPIL LARGER THAN LEFT BUT THEN EQUALED OUT. BOTH PUPILS SLUGGLISH WITH UPWARD GAZE. NO GAG NOTED. COUGH NOTED WITH SUCTION OF ET TUBE. LUNGS COARSE BUT AFTER SUCTIONING RIGHT UPPER LOBE CLEAR, LOWER LOBE DECREASED. LEFT CONT COARSE AND DECREASED. SUCTIONED MODERATED AMT YELLOW CREAM THICK SECRECTIONS VIA ET TUBE. LARGE AMT CLEAR ORAL SECRECTIONS SUCTIONED WITH ORAL CARE. HEART RATE REGULAR SINUS RHYTHM IN THE 90'S. BP STABLE 112/60 MAP 76. SKIN COOL WITH COOLING BLANKET AND FAN ON. TEMP 99.3. DOING TARGET TEMP TO KEEP NORMAL THERMIC. BT+HYPOACTIVE ABD SOFT. OG TO LOW INTERMIT SUCTIONS WITH YELLOW SECRECTIONS OUT. PENA CATH PATENT DRAINING YELLOW URINE. LEFT LOWER EXT SPLINT ON WITH CAP REFILL BRISK. REPOSITIONED WITH HOB. IV 20G TO RIGHT HAND/WRIST WITH PROPOFOL INFUSING AT 35 MCQ/KG/HR. SITE CLEAR. IV 20G TO LEFT AC WITH LR AT 150 ML/HR. SITE CLEAR.
--- NOTE | 2022-08-12 20:15 | NUR ---
FEVER TEMP 99.3 WITH COOLING CATH AND FAN ON. REPORTED TEMP AND MYOCLONIC JERKING TO DR SWEENEY AND THAT JERKING DECREASES WITH DOSE OF ATIVAN. CONT TO WATCH AT THIS TIME. IF TEMP CONT TO ELEVATE WITH CURRENT COOLING MEASURES NOTIFY DR MANZANO FOR COOLING CATH.
--- NOTE | 2022-08-12 20:30 | NUR ---
CONFIRMED WITH DR CORONA PT IS TO RECEIVE AMIODARONE AT 2100 [facility] HAS HAD DOSE AT 1426.
--- NOTE | 2022-08-12 20:47 | NUR ---
HS MEDS GIVEN AND OG CLAMPED
[2022-08-13] VITALS (91 sets, daily range): BP systolic 73–151; BP diastolic 43–129
[2022-08-13 06:17] LABS: Bun/Creatinine Ratio 16.7 (12.0-20.0); Calcium, Blood 8.2 mg/dL (8.5-10.1); Creatinine, Blood 0.72 mg/dL (0.40-1.00); Magnesium, Blood 1.8 mg/dL (1.6-2.4); Phosphorus, Blood 2.4 mg/dL (2.5-4.9); Potassium, Blood 4.1 mmol/L (3.5-5.5)
--- NOTE | 2022-08-13 06:29 | NUR ---
SHIFT SUMMARY PT CONT INTUBATED AND ON MECH VENT. DECREASE IN MYOCLONIC JERKING NOTED DURING THE NIGHT. PT HAD SEVERAL DOSES OF ATIVAN AND RECEIVED KEPPRA. TEMP MAX 99.6. COOLING BLANKET, FAN ON AND COOL CLOTH TO FOREHEAD. PT SEDATED WITH PROPOFOL AT 35 MCQ/KG/HR. LR AT 150 ML/HR. TURNED Q2HR. BILAT SOFT WRIST RESTRAINTS ON. REPOSITIONED Q2HR. LARGE AMT CLEAR ORAL SECRECTIONS. OG TO LIS WITH 600 ML GASTRIC CONT OUT. EKG DONE AND DR CORONA INTO SEE PT. REPORT TO ON COMING NURSE
--- NOTE | 2022-08-13 08:00 | NUR ---
INITIAL ASSESSMENT PATIENT INTUBATED AND ON SEDATION. PROPOFOL AT 35 MCG/ KG/ MINUTE. PATIENT NOT RESPONDING TO NOXIOUS STIMULI. GAZE IS STRAIGHT AHEAD. + DOLLS EYES. + CORNEAL REFLEX. PUPILS SLUGGISH. SCLERA EDEMA NOTED. COOLING BLANKET IN PLACE TO TRY AND KEEP TEMP BELOW 98.[address] SWEENEY AWARE THAT TEMP ABOVE THIS SET TEMP. + GAG AND COUGH NOTED WITH SUCTIONING OF ETT. LLE SPLINTED. CAP REFILL IN BILAT HANDS AND FEET LESS THAN 3 SECONDS. PATIENT APPEARS TO HAVE SOME SHIVERING BUT NOT THE JERKING THAT WAS NOTED YESTERDAY. PATIENT ON VENT: SETTINGS ACVC+ 15, TV 400, TI 0.90, PEEP 5 AND 30% FIO2. ETT 7.5 AND 26 AT THE TEETH. LUNGS CLEAR IN UPPER LOBES AND COARSE IN LOWER LOBES. SMALL AMOUNT OF THICK, YELLOW SECRETIONS NOTED WITH SUCTIONING. PATIENT IN SR, HR IN THE 80S. SBP IN THE LOW 100S. R SCD IN PLACE. OG TO LIS- BROWN DRAINAGE NOTED. PENA DRAINING GRETTA COLORED URINE. SKIN APPEARS WNL. LR INFUSING AT 150 MLS/ HOUR. BED LOW, CALL LIGHT IN REACH. WILL CONTINUE TO MONITOR PATIENT FREQUENTLY THROUGHOUT SHIFT.
--- NOTE | 2022-08-13 08:30 | NUR ---
DR. SWEENEY UPDATED ON PATIENT STATUS. TO ROOM TO SEE PATIENT. DR. SWEENEY INFORMED THAT PHOS 2.4 THIS AM AND NO REPLACMENT GIVEN. INFORMED THAT JERKING MOVEMENTS DECREASED OVER NIGHT AND THAT NONE NOTED THIS SHIFT THUS FAR. INFORMED THAT COOLING BLANKET REMAINS ON PATIENT AND THAT PATIENT TEMP 99.5 DEGREES THIS AM. STATED TO KEEP COOLING BLANKET ON PATIENT AND CONTINUE TO MONITOR. NO OTHER ORDERS RECEIVED AT THIS TIME. WILL CONTINUE TO MONITOR.
[2022-08-13 10:28] LABS: BASOPHILS ABSOLUTE AUTO 0.02 K/mm3 (0.00-0.23); BASOPHILS PERCENT AUTO 0 % (0-2); EOSINOPHILS ABSOLUTE AUTO 0.01 K/mm3 (0.00-0.68); EOSINOPHILS PERCENT AUTO 0 % (0-6); Hematocrit 42.8 % (33.0-51.0); IMMATURE GRAN ABSOLUTE AUTO 0.06 K/mm3 (0.00-0.10); IMMATURE GRAN PERCENT AUTO 1 % (0-1); LYMPHOCYTES ABSOLUTE AUTO 1.05 K/mm3 (0.84-5.20); LYMPHOCYTES PERCENT AUTO 10 % (21-46); MONOCYTES ABSOLUTE AUTO 0.79 K/mm3 (0.16-1.47); MONOCYTES PERCENT AUTO 7 % (4-13); Mean Corpuscular HGB 34.5 pg (26.0-34.0); Mean Corpuscular HGB Conc 32.7 g/dL (31.5-36.5); Mean Corpuscular Volume 105 fL (80-100); Mean Platelet Volume 8.7 fL (9.1-12.4); NEUTROPHILS ABSOLUTE AUTO 8.91 K/mm3 (1.96-9.15); NEUTROPHILS PERCENT AUTO 82 % (41-73); Platelet Count 168 K/mm3 (150-400); RDW Coefficient Variation 12.6 % (11.7-14.2); RDW Standard Deviation 49.4 fL (35.1-46.3); Red Blood Cell Count 4.06 M/mm3 (3.80-5.20); White Blood Cell Count 10.84 K/mm3 (4.00-11.30)
--- NOTE | 2022-08-13 13:00 | NUR ---
PATIENT CORE TEMP 98.7 DEGREES FAHRENHEIT AT THIS TIME. HR IN THE 70S. SBP IN THE 120S. PATIENT HYPERTENSIVE WHEN SEDATION OFF. PATIENT BACK ON PROPOFOL AT 20 MCG/ KG/ MINUTE. NO OTHER ACUTE CHANGES TO NOTE ON AT THIS TIME. WILL CONTINUE TO MONITOR.
[2022-08-13] MEDS ORDERED: LINZESS145 MCG PO (14:52)
[2022-08-13] MEDS ORDERED: HYDHCL25 PO (14:54)
[2022-08-13] MEDS ORDERED: Bentyl20 MG PO (15:00)
--- NOTE | 2022-08-13 16:04 | NUR ---
DR. SWEENEY UPDATED ON PATIENT STATUS. INFORMED THAT ONLY 150 MLS OF URINE OUTPUT SO FAR THIS SHIFT. INFORMED THAT DIAMOND WHEEL EDGER IN ROOM. INFORMED THAT PATIENT'S EYE FLUTTERING DECREASING AND NEED LUBRICATE FOR EYES NOW.
[2022-08-13] MEDS ORDERED: HYDPAM50 PO (16:16)
[2022-08-13] MEDS ORDERED: NARCAN4 M1 UD (16:20)
[2022-08-13] MEDS ORDERED: CYCL10 PO (16:21)
[2022-08-13] MEDS ORDERED: ALPRAZOLAM2 M1 PO (16:23)
[2022-08-13] MEDS ORDERED: Carisoprodol350 MG PO (16:24)
--- NOTE | 2022-08-13 16:34 | NUR ---
MED REC COMPLETED FROM [facility] INFO, [facility] INFO AND [facility] INFO.
--- NOTE | 2022-08-13 16:40 | NUR ---
PATIENT HAS CORE TEMP OF 100.[address] SWEENEY AWARE OF THIS TEMP. HR IN THE 80S. SBP IN THE 130S. NO OTHER ACUTE CHANGES TO NOTE ON AT THIS TIME. WILL CONTINUE TO MONITOR.
--- NOTE | 2022-08-13 18:13 | NUR ---
PATIENT'S NIECE, PHUONG, AND HER S.O. IN ROOM TO SEE PATIENT.
--- NOTE | 2022-08-13 19:02 | NUR ---
SHIFT SUMMARY PATIENT REMAINED INTUBATED. PATIENT HAD SEDATION VACATION THIS SHIFT. NEURO STATUS REMAINED UNCHANGED BETWEEN ON AND OFF SEDATION. PATIENT REMAINS UNRESPONSIVE TO NOXIOUS STIMULI. PATIENT REMAINS WITH COUGH AND GAG WITH SUCTIONING. CORNEAL REFLEXES REMAIN AND PUPILS REMAIN REACTING SLUGGLISHLY TO LIGHT. EYES HAVE REMAINED OPENED WITH FLUTTERING. PRN EYE OINTMENT ORDERED AND ADMINISTERED WHEN EYES NOT BLINKING ADEQUATELY ANYMORE. PATIENT REMAINS WITH COOLING BLANKET ON. CORE TMAX OF 100.[address] SWEENEY AWARE OF THIS AND STATED TO KEEP COOLING BLANKET ON UNTIL FURTHER NOTICE. PATIENT CHANGED TO ACVC+ 15, TV 400, TI 0.90, PEEP 5 AND FIO2 30% EARLY THIS AM AND REMAINS ON THESE SETTINGS. SMALL AMOUNT OF THICK, YELLOW SPUTUM REMAINS WITH ETT SUCTIONING. ETT PULLED BACK FROM 26 CM TO 23 CM BY RT THIS AM. PATIENT REMAINS HR 70S TO 80S. SBP 90S TO 140S. OG TO LIS. TF TO BE STARTED. 215 MLS OF GRETTA COLORED URINE OUT THIS SHIFT. DR. SWEENEY AWARE. NO CHANGES TO SKIN NOTED. LR REMAINS AT 150 MLS/ HOUR. PROPOFOL AT 20 MCG/ KG/ MINUTE. EEG PERFORMED THIS SHIFT. MED REC UPDATED THIS SHIFT. S.O. IN MOST OF THE DAY. REPORT HAS BEEN GIVEN TO ASSUMING SHEET METAL FABRICATOR NURSE.
--- NOTE | 2022-08-13 20:52 | NUR ---
ASSUMPTION OF CARE NOTE PT VENTED AND SEDATED. PROPOFOL AT 20MCG/KG/HR. 7.[address]; 23 CM AT TEETH.UPWARD GAZE WITH SLUGGISH PUPIL RESPONSE. COUGH WITH SUCTION CORE TEMP AT 100.3 F WITH COOLING BLANKET IN PLACE. LUNGS SOUNDS DIMINISHED THROUGHOUT. VENT SETTING AC/VC 15/400/5/30%. PT IN SINUS RYTHYM, HR IN 80S. SBP IN 140S. CONTINUOUS TUBE FEEDS INITIATED AT 35ML/HR. TEMP PENA DRAINING GRETTA COLORED URINE TO GRAVITY.
[2022-08-14] VITALS (71 sets, daily range): BP systolic 81–202; BP diastolic 41–171
[2022-08-14 03:21] LABS: BASOPHILS ABSOLUTE AUTO 0.01 K/mm3 (0.00-0.23); BASOPHILS PERCENT AUTO 0 % (0-2); EOSINOPHILS ABSOLUTE AUTO 0.01 K/mm3 (0.00-0.68); EOSINOPHILS PERCENT AUTO 0 % (0-6); Hematocrit 37.7 % (33.0-51.0); Hemoglobin 12.4 g/dL (11.5-16.0); IMMATURE GRAN ABSOLUTE AUTO 0.06 K/mm3 (0.00-0.10); IMMATURE GRAN PERCENT AUTO 1 % (0-1); LYMPHOCYTES ABSOLUTE AUTO 1.78 K/mm3 (0.84-5.20); LYMPHOCYTES PERCENT AUTO 14 % (21-46); MONOCYTES ABSOLUTE AUTO 1.48 K/mm3 (0.16-1.47); MONOCYTES PERCENT AUTO 12 % (4-13); Mean Corpuscular HGB 34.6 pg (26.0-34.0); Mean Corpuscular HGB Conc 32.9 g/dL (31.5-36.5); Mean Corpuscular Volume 105 fL (80-100); Mean Platelet Volume 8.5 fL (9.1-12.4); NEUTROPHILS ABSOLUTE AUTO 9.19 K/mm3 (1.96-9.15); NEUTROPHILS PERCENT AUTO 73 % (41-73); Platelet Count 145 K/mm3 (150-400); RDW Coefficient Variation 12.9 % (11.7-14.2); RDW Standard Deviation 50.3 fL (35.1-46.3); Red Blood Cell Count 3.58 M/mm3 (3.80-5.20); White Blood Cell Count 12.53 K/mm3 (4.00-11.30)
[2022-08-14 03:39] LABS: Albumin, Blood 2.6 g/dL (3.4-5.0); Albumin/Globulin Ratio 0.8 (0.8-1.8); Bilirubin, Total 0.3 mg/dL (0.1-1.0); Bun/Creatinine Ratio 25.2 (12.0-20.0); Calcium, Blood 8.1 mg/dL (8.5-10.1); Creatinine, Blood 0.63 mg/dL (0.40-1.00); Globulin, Blood 3.1 g/dL (2.2-4.0); Phosphorus, Blood 1.5 mg/dL (2.5-4.9); Potassium, Blood 3.4 mmol/L (3.5-5.5); Total Protein, Blood 5.7 g/dL (6.4-8.2)
[2022-08-14 04:20] LABS: PCO2 Arterial 34.8 mmHg (35-45); PO2 Arterial 271 mmHg (80-100); pH Blood Arterial 7.43 (7.35-7.45)
--- NOTE | 2022-08-14 05:43 | NUR ---
SHIFT SUMMARY NO ACUTE CHANGES OVERNIGHT. PT REMAINS SEDATED WITH 20MCG/KG/HR. VENT SETTINGS AC/VC 15/400/5/25%. LUNG SOUNDS COARSE IN LOWER LOBES. TEMP DROPPED TO 99.1F WITH COOLING BLANKET AND 1 DOSE OF TYLENOL. HR AND BP REMAIN STABLE AND UNCHANGED. K:3.4 AND PHOS:1.5 THIS AM. IV REPLACEMENT ORDERED AND GIVEN. NO IMPROVEMENT IN NEURO STATUS OVERNIGHT. TUBE FEEDS WERE TOLERATED WELL. PLAN TO GATHER FAMILY TODAY TO DISCUSS GOALS OF CARE
--- NOTE | 2022-08-14 08:34 | NUR ---
ASSUMED CARE CARE OF THE PATIENT WAS ASSUMED AT 0700. PT'S BLOOD PRESSURE STABLE. TEMPERATURE 99.O DEGREES FAHRENHEIT WITH COOLING BLANKET ON. VENT SETTINGS AC/VC 15/400/5/25%. ETT PLACEMENT 23 AT THE GUMS. NOTED THAT PT IS DROOLING COPIOUS AMOUNTS OF SALIVA AND TWITCHING. PROPOFOL @20 WHICH WAS TITRATED TO [address] SWEENEY'S REQUEST. LR @150. TUBE FEEDING INFUSING @35. K-PHOS INFUSING. 2 OF ATIVAN GIVEN BY ANAHY GOULD FOR TWITCHING. PT'S PENA PATENT AND DRAINING TO GRAVITY. CATHETER CARE PERFORMED. COOLING BLANKET MOVED FOR PATIENT TO LAY ON TOP OF.
--- NOTE | 2022-08-14 11:21 | NUR ---
KEPPRA WAS STARTED PAST THE SCHEDULED TIME D/T IT BEING NOTED THAT SOME OF PT'S IV INFUSIONS WERE INCOMPATIBLE WITH EACH OTHER. THIS STUDENT NURSE AND ANAHY RN ATTEMPTED TO START NEW PERIPHERAL IV ACCESS BUT WERE UNSUCCESSFUL. A POWERGLIDE WAS PUT IN BY ANOTHER NURSE AND KEPPRA WAS STARTED AT 1030.
--- NOTE | 2022-08-14 13:53 | NUR ---
HEADED TO CT AT 1311, RT,RN,SN,CTA IN ATTENDANCE, SCAN DONE. ON THE WAY BACK VENTILATOR NOT PERFORMING, PT'S SATS DOWN TO 78%, I IMMEDIATELY BEGAN BAGGING HER AND HER SATS RETURNED TO 100%, BAGGING CONTINUED INTO THE ROOM FOR A BRIEF TIME WHILE THE VENTILATOR WAS SET UP AGAIN, PT TOLERATED THIS WITHOUT ANY FURTHER INCIDENT. RT NOW RE-TAPPING ETT, VS STABLE. COOLING BLANKET RETURNED TO COOLING. PROPOFOL REMAINS @ 30MCG/KG, TF @ 30ML/HR, LR @ 150ML/HR.
--- NOTE | 2022-08-14 18:32 | NUR ---
SHIFT SUMMARY JAMIL REMAINS UNRESPONSIVE. THE PATIENT HAS HAD NO ACUTE CHANGES THAT SIGNIFY POSITIVE CHANGE. THIS MORNING THE PATIENT'S EYES WERE OPEN, FIXED AND PUPILS MEASURING AROUND 4 MM THAT WERE SLIGHTLY UNEQUAL. OF 1829 THE PATIENT'S PUPILS WERE VERY CONSTRICTED, 2 MM, AND HER GAZE WAS DIFFERENT IN EACH EYE. HER LEFT EYE WAS MORE STRAIGHT FORWARD AND HER RIGHT EYE WAS GAZING MORE UPWARD. THE PATIENT HAS SHOWN INTERAL ROTATION BILATERALLY IN HER UE AND IN HER RIGHT LEG. THE PATIENT HAD A CT TODAY WHICH SHOWED DIFFUSE BRAIN SWELLING. AT TIMES THE PATIENT'S BLOOD PRESSURES WOULD BE HYPERTENSIVE, BUT IT WAS NOTED THAT THE PATIENT WAS ALSO TREMULOUS THROUGHOUT WHICH COULD HAVE CONTRIBUTED TO IT. THE PATIENT STAYED IN NSR TODAY. VENT SETTINGS STAYED THE SAME TODAY, AC/VC 15/400/5/25%. PT HAS HAD COPIOUS AMOUNT OF SALIVA PRODUCED TODAY. THE PATIENT'S TEMPERATURE HAS STAYED BETWEEN 98.8-99.3 DEGRESS F. THIS IS WITH A COOLING BLANKET BELOW THE PATIENT, ONE IN THE GROIN, AND ICE PACKS IN THE ARMPITS. PT HAD 550 OUT THROUGH HER PENA THIS SHIFT. LR @150 ML/HR, PROPOFOL @30 MCG/KG CURRENTLY RUNNING. WILL CONTINUE TO MONITOR UNTIL CARE IS TRANSITIONED TO NOC SHIFT.
--- NOTE | 2022-08-14 18:53 | NUR ---
CARE HAS BEEN DONE BY BOTH THE STUDENT NURSE AND THIS RN THROUGHOUT THE DAY.
--- NOTE | 2022-08-14 20:00 | NUR ---
ASSUMPTION OF CARE NOTE PT SEDATED WITH 30MCG/KG/HR. VENT SETTINGS 15/400/5/25%. PER REPORT PT HAS BEEN AFEBRILE WITH COOLING BLANKET CURRENTLY IN PLACE. PT IS NOT RESPONSIVE TO NOXIOUS STIMULI. NO GAG OR COUGH PRESENT. POSITIVE DOLL EYES. PT IS IN NORMAL SINUS RYTHYM. SBP 120S-140S. PENA IN PLACE DRAINING TO GRAVITY. CONTINUOUS TUBE FEEDS AT 35ML/HR WITH 30 ML H2O FLUSHES Q4. ATIVAN BEING USED FOR MYOCLONIC JERKING.
[2022-08-15] VITALS (60 sets, daily range): BP systolic 100–167; BP diastolic 53–111
[2022-08-15 03:25] LABS: BASOPHILS ABSOLUTE AUTO 0.03 K/mm3 (0.00-0.23); BASOPHILS PERCENT AUTO 0 % (0-2); EOSINOPHILS PERCENT AUTO 1 % (0-6); Hematocrit 33.5 % (33.0-51.0); Hemoglobin 11.4 g/dL (11.5-16.0); IMMATURE GRAN ABSOLUTE AUTO 0.09 K/mm3 (0.00-0.10); IMMATURE GRAN PERCENT AUTO 1 % (0-1); LYMPHOCYTES ABSOLUTE AUTO 2.12 K/mm3 (0.84-5.20); LYMPHOCYTES PERCENT AUTO 19 % (21-46); MONOCYTES ABSOLUTE AUTO 1.48 K/mm3 (0.16-1.47); MONOCYTES PERCENT AUTO 13 % (4-13); Mean Corpuscular HGB 34.1 pg (26.0-34.0); NEUTROPHILS PERCENT AUTO 66 % (41-73); RDW Coefficient Variation 12.7 % (11.7-14.2); RDW Standard Deviation 46.9 fL (35.1-46.3); Red Blood Cell Count 3.34 M/mm3 (3.80-5.20); White Blood Cell Count 11.42 K/mm3 (4.00-11.30)
[2022-08-15 03:27] LABS: Mean Corpuscular Volume 100 fL (80-100); Mean Platelet Volume 9.7 fL (9.1-12.4); Platelet Count 95 K/mm3 (150-400)
[2022-08-15 03:48] LABS: Albumin, Blood 2.3 g/dL (3.4-5.0); Albumin/Globulin Ratio 0.8 (0.8-1.8); Bilirubin, Total 0.4 mg/dL (0.1-1.0); Calcium, Blood 7.8 mg/dL (8.5-10.1); Creatinine, Blood 0.49 mg/dL (0.40-1.00); Potassium, Blood 4.2 mmol/L (3.5-5.5); Total Protein, Blood 5.3 g/dL (6.4-8.2)
--- NOTE | 2022-08-15 06:03 | NUR ---
SHIFT SUMMARY NO ACUTE CHANGES OVERNIGHT. NEURO STATUS REMAINS UNCHANGED WITH NO SIGNS OF IMPROVEMENT. 4MG OF ATIVAN GIVEN 1X FOR INCREASED MYCLONIC JERKING WITH SUCCESS. PROPOFOL REMAINS AT 30MCG/KG/MIN. NO CHANGE TO VENT SETTINGS. PT REMAINED AFEBRILE OVERNIGHT, COOLING BLANKET IN PLACE. PT IN NSR W/ PRESSURES RMAINING IN 140S. FAMILY TO CONTINUE DISCUSSING PLAN OF CARE TODAY.
--- NOTE | 2022-08-15 11:20 | NUR ---
"Spiritual Care | Family Support Pt. is intubated and not responsive. Pts. POA (niece) and SO are present. Herminia Soni gave a theraputic update. Palliative Care nurse is also present. Pts. niece is engaged and displays evidence fo being understanding regarding the seriousness of the Pts. condition. After Dr. Hope departed SO verbalized that it was time to proceed with the donation team. Provided extra chairs for the Donation consult. Will remain available to the family."
--- NOTE | 2022-08-15 11:24 | NUR ---
Initial palliative care consult: Lisbeth is a 62 year old with a history of depression and bipolar. She was admitted on 08/12/22 s/p a cardiac arrest event. Her S.O., Don, started CPR prior to EMS arriving. Lisbeth is currently on the vent. Present for a family meeting (S.O. Don, pt's niece and her friend) with Dr. Vargas and [facility] inspector Romel, to discuss current condition. Lisbeth has cerebral edema and no purposeful movements at this time. Dr. Vargas spoke with family and answered questions. Lisbeth's niece stated "I can tell she's not here anymore" when speaking about her aunt. After speaking with Dr. Vargas, family is asking to speak with the organ procurement team from [place]. Team notified and is currently in visiting with Lisbeth's family in the room. Family is requesting that hospital staff properly dispose of Lisbeth's medications once the organ procurement team goes through them. Nursing notified. Will allow family some time to process all the information that they have received and will remain available for support prn.
--- NOTE | 2022-08-15 13:30 | NUR ---
[facility] TEAM AT BEDSIDE DISCUSSING PLAN OF CARE WITH PT SIGNIFICANT OTHER AND NIECE. DR ANDREA UPDATED FAMILY THIS AM OF PT CONDITION. PT FAMILY HAS DECIDED TO MOVE FORWARD WITH ORGAN DONATION AT TIME OF WITHDRAWAL OF CARE. DR ANDREA UPDATED WITH FAMILY DECISION. MULTIPLE NEW ORDERS PLACED AT THIS TIME. PT REMAINS STABLE ON VENT AND SEDATED WITH PROPOFOL. VITAL SIGNS STABLE. WILL CONTINUE TO MONITOR.
[2022-08-15 15:14] LABS: SARS-Cov-2 (COVID-19) PCR, MMC NEGATIVE (NEGATIVE)
[2022-08-15 15:47] LABS: PO2 Arterial 76.3 mmHg (80-100)
[2022-08-15 15:52] LABS: Source, Urine Foley catheter
[2022-08-15 15:56] LABS: Appearance, Urine Clear (Clear); Bilirubin, Urine Neg (Neg); Blood, Urine Neg (Neg); Color, Urine Yellow (P-Yellow); Glucose Qualitative, Urine Neg (Neg); Ketones, Urine Neg (Neg); Leukocyte Esterase, Urine Neg (Neg); Nitrite, Urine Neg (Neg); Protein, Urine 1+ (Neg); Urobilinogen, Urine NORM (Normal)
[2022-08-15 16:52] LABS: BASOPHILS ABSOLUTE AUTO 0.02 K/mm3 (0.00-0.23); BASOPHILS PERCENT AUTO 0 % (0-2); EOSINOPHILS ABSOLUTE AUTO 0.05 K/mm3 (0.00-0.68); EOSINOPHILS PERCENT AUTO 1 % (0-6); Hematocrit 31.1 % (33.0-51.0); Hemoglobin 10.5 g/dL (11.5-16.0); IMMATURE GRAN ABSOLUTE AUTO 0.03 K/mm3 (0.00-0.10); IMMATURE GRAN PERCENT AUTO 0 % (0-1); LYMPHOCYTES ABSOLUTE AUTO 1.39 K/mm3 (0.84-5.20); LYMPHOCYTES PERCENT AUTO 18 % (21-46); MONOCYTES ABSOLUTE AUTO 0.85 K/mm3 (0.16-1.47); MONOCYTES PERCENT AUTO 11 % (4-13); Mean Corpuscular HGB 34.2 pg (26.0-34.0); Mean Corpuscular HGB Conc 33.8 g/dL (31.5-36.5); Mean Corpuscular Volume 101 fL (80-100); Mean Platelet Volume 8.8 fL (9.1-12.4); NEUTROPHILS ABSOLUTE AUTO 5.56 K/mm3 (1.96-9.15); NEUTROPHILS PERCENT AUTO 70 % (41-73); Platelet Count 164 K/mm3 (150-400); RDW Coefficient Variation 12.5 % (11.7-14.2); RDW Standard Deviation 47.3 fL (35.1-46.3); Red Blood Cell Count 3.07 M/mm3 (3.80-5.20)
[2022-08-15 17:14] LABS: Magnesium, Blood 1.7 mg/dL (1.6-2.4)
--- NOTE | 2022-08-15 17:19 | NUR ---
SHIFT SUMMARY PT RESTING IN BED. PT ON VENTILATER AC/VC 15, 400, 5, 25%. SPO2 >95%. PT NONRESPONSIVE TO PAINFUL STIMULI, OCCASIONAL MYOCLONIC JERKING NOTED, NEGATIVE DOLL EYE RESPONSE. HR 70-80'S NSR, BP STABLE. PENA DRAINING TO GRAVITY. PT FEBRILE, MEDICATED PER EMAR, COOLING BLANKET IN PLACE. PT IS BEING MANAGED BY CLA FOR ORGAN PROCURMENT. WILL CONTINUE TO MONITOR AND GIVE REPORT TO ONCOMING RN.
[2022-08-15 17:22] LABS: Albumin, Blood 2.4 g/dL (3.4-5.0); Albumin/Globulin Ratio 0.7 (0.8-1.8); Bilirubin, Direct 0.2 mg/dL (0.0-0.3); Bilirubin, Indirect 0.2 mg/dL (0.1-0.7); Bilirubin, Total 0.4 mg/dL (0.1-1.0); Bun/Creatinine Ratio 27.1 (12.0-20.0); Creatinine, Blood 0.63 mg/dL (0.40-1.00); Globulin, Blood 3.5 g/dL (2.2-4.0); Phosphorus, Blood 2.1 mg/dL (2.5-4.9); Potassium, Blood 2.9 mmol/L (3.5-5.5); Total Protein, Blood 5.9 g/dL (6.4-8.2)
[2022-08-15 17:23] LABS: Amylase, Blood 45 U/L (25-115)
--- NOTE | 2022-08-15 19:00 | NUR ---
ASSUMED CARE ASSUMED CARE OF PATIENT. REMAINS INTUBATED- AC/VC+ 14/500/5/25%. SEDATED WITH PROPOFOL AT 30MCG/KG/MIN. MONITOR SHOWS NSR, RATE 90s. BP STABLE. TEMP 100.8F PER PENA TEMP PROBE. COOLING BLANKET IS ON. OG CLAMPED AT THIS TIME. PENA PATENT AND DRAINING YELLOW URINE. LUE PICC NOTED- DRSG C/D/I. KCL IVPB INFUSING PER ORDER. LLE WITH SPLINT IN PLACE. SEE SHIFT ASSESSMENT FOR FULL ASSESSMENT.
[2022-08-16] VITALS (65 sets, daily range): BP systolic 108–153; BP diastolic 28–112
[2022-08-16 05:44] LABS: BASOPHILS ABSOLUTE AUTO 0.04 K/mm3 (0.00-0.23); BASOPHILS PERCENT AUTO 1 % (0-2); EOSINOPHILS ABSOLUTE AUTO 0.16 K/mm3 (0.00-0.68); EOSINOPHILS PERCENT AUTO 2 % (0-6); Hematocrit 28.1 % (33.0-51.0); Hemoglobin 9.3 g/dL (11.5-16.0); IMMATURE GRAN ABSOLUTE AUTO 0.03 K/mm3 (0.00-0.10); IMMATURE GRAN PERCENT AUTO 0 % (0-1); LYMPHOCYTES ABSOLUTE AUTO 1.95 K/mm3 (0.84-5.20); LYMPHOCYTES PERCENT AUTO 28 % (21-46); MONOCYTES ABSOLUTE AUTO 0.86 K/mm3 (0.16-1.47); MONOCYTES PERCENT AUTO 12 % (4-13); Mean Corpuscular HGB 33.7 pg (26.0-34.0); Mean Corpuscular HGB Conc 33.1 g/dL (31.5-36.5); Mean Corpuscular Volume 102 fL (80-100); Mean Platelet Volume 8.6 fL (9.1-12.4); NEUTROPHILS ABSOLUTE AUTO 4.03 K/mm3 (1.96-9.15); NEUTROPHILS PERCENT AUTO 57 % (41-73); Platelet Count 154 K/mm3 (150-400); RDW Coefficient Variation 12.8 % (11.7-14.2); RDW Standard Deviation 47.8 fL (35.1-46.3); Red Blood Cell Count 2.76 M/mm3 (3.80-5.20); White Blood Cell Count 7.07 K/mm3 (4.00-11.30)
[2022-08-16 06:13] LABS: Albumin, Blood 2.1 g/dL (3.4-5.0); Albumin/Globulin Ratio 0.7 (0.8-1.8); Bilirubin, Direct 0.1 mg/dL (0.0-0.3); Bilirubin, Indirect 0.3 mg/dL (0.1-0.7); Bilirubin, Total 0.4 mg/dL (0.1-1.0); Bun/Creatinine Ratio 22.6 (12.0-20.0); Calcium, Blood 7.6 mg/dL (8.5-10.1); Creatinine, Blood 0.58 mg/dL (0.40-1.00); Globulin, Blood 2.9 g/dL (2.2-4.0); Magnesium, Blood 1.6 mg/dL (1.6-2.4)
--- NOTE | 2022-08-16 06:38 | NUR ---
SHIFT SUMMARY NO ACUTE CHANGES. REMAINS INTUBATED- AC/VC+ 15/400/5/25%. RR 15-30s. NO NEURO CHANGES. CONTINUES WITH POSITIVE COUGH, NO GAG REFLEX. WITHDRAWS LUE TO NAIL BED PRESSURE. NO OTHER RESPONSE TO NOXIOUS STIMULI. MEDICATED WITH ATIVAN 4MG IV X 2 DOSES FOR INCREASED RESPIRATORY RATE AND INCREASED MYOCLONIC JERKING/TWITCHING. KADE, SLUGGISH. VSS. TMAX 101.2F. COOLING BLANKET ON INTERMITTENTLY. MEDICATED WITH TYLENOL 650MG PT X 2 DOSES FOR INCREASED TEMP. OG CLAMPED AT THIS TIME AFTER MEDICATION ADMINISTRATION. BECKY PATENT AND DRAINING TO GRAVITY. [facility] PIC PATENT, DRSMiguel D/I. RECEIVED SEVERAL CALLS FROM [employer] DURING SHIFT FOR UPDATES. AM LABS REVIEWED- POTASSIUM AND MAGNESIUM REPLACEMENTS ORDERED PER ELECTROLYTE PROTOCOL. WILL REPORT TO ONCOMING RN WHEN AVAILABLE.
--- NOTE | 2022-08-16 08:31 | NUR ---
CLA UPDATE CHANDA FROM [facility] CALLED. UPDATED WITH VITALS, LABS, AND PT ASSESSMENT FINDINGS. NO NEW RECOMMENDATIONS FROM [facility] RECIEVED AT THIS TIME. WILL CONTINUE WITH CURRENT ORDERED MEDS PER PRIMARY CARE TEAM.
[2022-08-16 15:59] LABS: PCO2 Arterial 32.3 mmHg (35-45); PO2 Arterial 71.2 mmHg (80-100); pH Blood Arterial 7.47 (7.35-7.45)
[2022-08-16 17:51] LABS: International Normalized Ratio 1.01; Prothrombin Time Results 10.6 Sec (9.7-11.5)
[2022-08-16 17:54] LABS: Albumin, Blood 2.1 g/dL (3.4-5.0); Albumin/Globulin Ratio 0.7 (0.8-1.8); Bilirubin, Direct 0.1 mg/dL (0.0-0.3); Bilirubin, Indirect 0.1 mg/dL (0.1-0.7); Bilirubin, Total 0.2 mg/dL (0.1-1.0); Bun/Creatinine Ratio 19.2 (12.0-20.0); Calcium, Blood 7.3 mg/dL (8.5-10.1); Creatinine, Blood 0.57 mg/dL (0.40-1.00); Globulin, Blood 3.1 g/dL (2.2-4.0); Magnesium, Blood 2.3 mg/dL (1.6-2.4); Phosphorus, Blood 2.3 mg/dL (2.5-4.9); Potassium, Blood 3.8 mmol/L (3.5-5.5); Total Protein, Blood 5.2 g/dL (6.4-8.2)
--- NOTE | 2022-08-16 18:15 | NUR ---
SHIFT SUMMARY PT RESTING IN BED. HR 80'S NSR, BP STABLE. PT WITHDRAWALS AND INTERNALLY ROTATES BUE TO PAINFUL STIMULI. NEGATIVE DOLL EYES REFLEX, POSITIVE CORNEAL REFLEX PRESENT, PROPOFOL INFUSING AT 50MCG/KG/MIN. VENT AC/VC 15,400,5,25%. ARTERIAL LINE PLACED IN RIGHT FEMORAL ARTERY. PENA DRAINING TO GRAVITY. CLA MANAGING PT AND MAKING RECOMMENDATIONS FOR CARE. PT FAMILY PRESENT AT BEDSIDE THIS AFTERNOON. WILL CONTINUE TO MONITOR AND GIVE REPORT TO ONCOMING RN.
--- NOTE | 2022-08-16 19:00 | NUR ---
ASSUMED CARE ASSUMED CARE OF PATIENT. REMAINS INTUBATED- AC/VC+ 15/400/5/25%. PROPOFOL INFUSING AT 50MCG/KG/MIN. WITHDRAWS EXTREMITIES TO NOXIOUS STIMULI WITH INTERNAL ROTATION NOTED. NO SPONTANEOUS MOVEMENT NOTED, OTHER THAN OPENING EYES. POSITIVE CORNEAL REFLEX. NO GAG. POSITIVE COUGH. KADE, 6MM, SLUGGISH. MONITOR SHOWS NSR, RATE 80s. BP STABLE. RIGHT FEMORAL ARTERIAL LINE NOTED- SOME OOZING NOTED. SANDBAG IN PLACE TO GROIN. TEMP 100.3F. COOLING BLANKET IN PLACE. OG CLAMPED. PENA PATENT AND DRAINING TO GRAVITY. LLE WITH SPLINT IN PLACE. SEE SHIFT ASSESSMENT FOR FULL ASSESSMENT.
[2022-08-16 19:35] LABS: Source, Urine Foley catheter
[2022-08-16 19:44] LABS: Appearance, Urine Clear (Clear); Bilirubin, Urine Neg (Neg); Blood, Urine Neg (Neg); Color, Urine Yellow (P-Yellow); Glucose Qualitative, Urine Neg (Neg); Ketones, Urine Neg (Neg); Leukocyte Esterase, Urine Neg (Neg); Nitrite, Urine Neg (Neg); Protein, Urine 2+ (Neg); Urobilinogen, Urine 1+ (Normal)
[2022-08-16 20:13] LABS: Bacteria Rare /hpf; Red Blood Cells, Urine 0-2 /hpf (0-2); Squamous Epithelial Cells Few /hpf (Few); White Blood Cells, Urine 0-2 /hpf (0-5)
[2022-08-17 05:23] LABS: BASOPHILS ABSOLUTE AUTO 0.03 K/mm3 (0.00-0.23); BASOPHILS PERCENT AUTO 1 % (0-2); EOSINOPHILS PERCENT AUTO 3 % (0-6); Hematocrit 25.8 % (33.0-51.0); Hemoglobin 8.8 g/dL (11.5-16.0); IMMATURE GRAN ABSOLUTE AUTO 0.03 K/mm3 (0.00-0.10); IMMATURE GRAN PERCENT AUTO 1 % (0-1); LYMPHOCYTES ABSOLUTE AUTO 1.67 K/mm3 (0.84-5.20); LYMPHOCYTES PERCENT AUTO 25 % (21-46); MONOCYTES ABSOLUTE AUTO 0.69 K/mm3 (0.16-1.47); MONOCYTES PERCENT AUTO 11 % (4-13); Mean Corpuscular HGB 34.5 pg (26.0-34.0); Mean Corpuscular HGB Conc 34.1 g/dL (31.5-36.5); Mean Corpuscular Volume 101 fL (80-100); Mean Platelet Volume 8.6 fL (9.1-12.4); NEUTROPHILS ABSOLUTE AUTO 3.96 K/mm3 (1.96-9.15); NEUTROPHILS PERCENT AUTO 60 % (41-73); Platelet Count 156 K/mm3 (150-400); RDW Coefficient Variation 12.7 % (11.7-14.2); RDW Standard Deviation 47.5 fL (35.1-46.3); Red Blood Cell Count 2.55 M/mm3 (3.80-5.20); White Blood Cell Count 6.58 K/mm3 (4.00-11.30)
[2022-08-17 05:45] LABS: International Normalized Ratio 1.01; Prothrombin Time Results 10.6 Sec (9.7-11.5)
[2022-08-17 06:05] LABS: Albumin, Blood 2.1 g/dL (3.4-5.0); Albumin/Globulin Ratio 0.7 (0.8-1.8); Bilirubin, Direct 0.1 mg/dL (0.0-0.3); Bilirubin, Indirect 0.4 mg/dL (0.1-0.7); Bilirubin, Total 0.5 mg/dL (0.1-1.0); Bun/Creatinine Ratio 14.7 (12.0-20.0); Calcium, Blood 7.5 mg/dL (8.5-10.1); Creatinine, Blood 0.55 mg/dL (0.40-1.00); Magnesium, Blood 1.9 mg/dL (1.6-2.4); Phosphorus, Blood 2.6 mg/dL (2.5-4.9); Potassium, Blood 3.2 mmol/L (3.5-5.5); Total Protein, Blood 5.1 g/dL (6.4-8.2)
--- NOTE | 2022-08-17 06:19 | NUR ---
SHIFT SUMMARY NO ACUTE CHANGES. REMAINS INTUBATED. NO NEURO CHANGES DURING NOC. SEDATED WITH PROPOFOL AT 50MCG/KG/MIN. MEDICATED WITH ATIVAN X 2 DOSES AND FENTANYL X 1 DOSE FOR COMFORT. VSS. TMAX 101.2. MEDICATED WITH TYLENOL PT X 1 DOSE FOR FEVER. OG CLAMPED. PENA PATENT AND DRAINING TO GRAVITY. ARIS PICC PATENT. RIGHT FEMORAL ARTERIAL LINE PATENT, ZEROED. SMALL AMOUNT OF OLD BLOOD NOTED AT SITE. COMPLETE BED BATH AND LINEN CHANGE DURING. WILL REPORT TO ONCOMING RN WHEN AVAILABLE.
[2022-08-17 09:10] LABS: Source, Urine Foley catheter
[2022-08-17 09:40] LABS: Appearance, Urine Clear (Clear); Bilirubin, Urine Neg (Neg); Blood, Urine Neg (Neg); Color, Urine Yellow (P-Yellow); Glucose Qualitative, Urine Neg (Neg); Ketones, Urine Neg (Neg); Leukocyte Esterase, Urine Neg (Neg); Nitrite, Urine Neg (Neg); Protein, Urine Neg (Neg); Urobilinogen, Urine NORM (Normal); pH, Urine 6.5 (5.0-8.0)
[2022-08-17 10:24] LABS: PCO2 Arterial 31.1 mmHg (35-45); PO2 Arterial 74.7 mmHg (80-100); pH Blood Arterial 7.47 (7.35-7.45)
[2022-08-17 12:28] VITALS: BP 125/63
--- NOTE | 2022-08-17 14:23 | NUR ---
Multiple spiritual care visits today, spanning several hors as I walk patient's family through the emotional/spiritual aspects of patient's organ donation. I provde prayer several times, lead the honor walk, conduct a tribute before patient enters the OR and provide life review, grief support and therapeutic listening. I provide bereavement materials a dn offer follow up bereavement domestic violence counselor to pateint 's SO Don. Family responded well and showed signs of being comforted.
--- NOTE | 2022-08-17 15:35 | NUR ---
EXTUBATION TO COMFORT CARE PT FAMILY AT BEDSIDE TO VISIT AT 1200. SPIRITUAL CARE AT BEDSIDE WITH FAMILY. PT TAKEN TO THE OR FROM ICU 11 AT 1300 WITH WELDING MANAGER, RT, DR ANDREA, AND CLA TEAM. PT EXTUBATED TO COMFORT CARE BY RT IN THE OR AT 1315. PT MEDICATED WITH A TOTAL OF 35 MG IV MORPHINE IN 5 MG INCREMENTS AND 4 MG IV ATIVAN UNTIL TIME OF AT 1339. TIME OF PRONOUNCED BY DR ANDREA AT BEDSIDE IN THE OR. ALL PT BELONGINGS SENT HOME WITH PT FAMILY.
== END 2022-08-17 18:26 | DRG 308 ==
LOC: ER 08:17 → ICUW 10:59
PROVIDERS: Emergency Medicine; Internal Medicine Cardiovascular Disease; Internal Medicine Critical Care Medicine; ADMIT Internal Medicine
PROC: 5A1955Z Respiratory Ventilation, Greater than 96 Consecutive Hours (ICD-10-PCS; principal; 2022-08-12)
PROC: 0BH17EZ Insertion of Endotracheal Airway into Trachea, Via Natural or Artificial Opening (ICD-10-PCS; 2022-08-12)
PROC: 2W3RX1Z Immobilization of Left Lower Leg using Splint (ICD-10-PCS; 2022-08-12)
PROC: 0DH67UZ Insertion of Feeding Device into Stomach, Via Natural or Artificial Opening (ICD-10-PCS; 2022-08-12)
PROC: 0T9B70Z Drainage of Bladder with Drainage Device, Via Natural or Artificial Opening (ICD-10-PCS; 2022-08-12)
PROC: 4A133R1 Monitoring of Arterial Saturation, Peripheral, Percutaneous Approach (ICD-10-PCS; 2022-08-14)
PROC: 02HV33Z Insertion of Infusion Device into Superior Vena Cava, Percutaneous Approach (ICD-10-PCS; 2022-08-16)
PROC: 03HY32Z Insertion of Monitoring Device into Upper Artery, Percutaneous Approach (ICD-10-PCS; 2022-08-16)
PROC: 4A133B1 Monitoring of Arterial Pressure, Peripheral, Percutaneous Approach (ICD-10-PCS; 2022-08-16)
PROC: 4A133J1 Monitoring of Arterial Pulse, Peripheral, Percutaneous Approach (ICD-10-PCS; 2022-08-16)
DX: I49.01 Ventricular fibrillation (principal); G92.8 Other toxic encephalopathy; J96.00 Acute respiratory failure, unspecified whether with hypoxia or hypercapnia; G93.1 Anoxic brain damage, not elsewhere classified; J98.11 Atelectasis; F31.9 Bipolar disorder, unspecified; Z51.5 Encounter for palliative care; E87.6 Hypokalemia; E78.00 Pure hypercholesterolemia, unspecified; K21.9 Gastro-esophageal reflux disease without esophagitis; I46.2 Cardiac arrest due to underlying cardiac condition; I95.9 Hypotension, unspecified; F41.9 Anxiety disorder, unspecified; G47.00 Insomnia, unspecified; R82.81 Pyuria; F17.210 Nicotine dependence, cigarettes, uncomplicated; S82.302A Unspecified fracture of lower end of left tibia, initial encounter for closed fracture; F10.11 Alcohol abuse, in remission; F15.11 Other stimulant abuse, in remission; R94.31 Abnormal electrocardiogram [ECG] [EKG]; G40.409 Other generalized epilepsy and epileptic syndromes, not intractable, without status epilepticus; I10 Essential (primary) hypertension; J44.9 Chronic obstructive pulmonary disease, unspecified; K58.9 Irritable bowel syndrome, unspecified; G43.909 Migraine, unspecified, not intractable, without status migrainosus; R29.6 Repeated falls; W18.30XA Fall on same level, unspecified, initial encounter; R73.03 Prediabetes; Y90.0 Blood alcohol level of less than 20 mg/100 ml; B95.7 Other staphylococcus as the cause of diseases classified elsewhere; Z20.822 Contact with and (suspected) exposure to COVID-19; Z87.11 Personal history of peptic ulcer disease; Z87.19 Personal history of other diseases of the digestive system; Z90.710 Acquired absence of both cervix and uterus; Z90.49 Acquired absence of other specified parts of digestive tract; Z90.722 Acquired absence of ovaries, bilateral; Z86.73 Personal history of transient ischemic attack (TIA), and cerebral infarction without residual deficits; Z98.890 Other specified postprocedural states; Z88.8 Allergy status to other drugs, medicaments and biological substances; Z79.891 Long term (current) use of opiate analgesic; Z79.899 Other long term (current) drug therapy
CPT/HCPCS: 29515; 31500; 36415; 36569; 36600; 36620; 51702; 70450; 71045; 71250; 71260; 72125; 73590; 73610; 74176; 80047; 80048; 80053; 80076; 81001; 81003; 82150; 82803; 83036; 83690; 83735; 83880; 84100; 84443; 84484; 85014; 85025; 85379; 85610; 85730; 86850; 86900; 86901; 87040; 87070; 87077; 87086; 87186; 87205; 93005; 93010; 93306; 94002; 94003; 95819; 96360-59; 96361-59; 99291-25; A9270; C1751; C9113; G0480; J0282; J0330; J0690; J1644; J1650; J1940; J1953; J2060; J2250; J2270; J2704; J3010; J3475; J3480; J7030; J7040; J7050; J7060; J7120; Q9967; U0002

== ENCOUNTER 2022-08-15 12:00 | Inpatient (IN) | payer OTHER ==
[~2022-08-15 12:00] MED LIST changes: +ALPRAZOLAM2 M1 PO; +Bentyl20 MG PO; +Carisoprodol350 MG PO; +HYDACE10B PO; +HYDHCL25 PO; +LINZESS145 MCG PO; +NARCAN4 M1 UD; +ONDA4ODT MM
== END 2022-08-17 13:49 | DRG 951 ==
LOC: ICUW 12:00
PROVIDERS: ADMIT Internal Medicine
DX: Z52.89 Donor of other specified organs or tissues (principal)
CPT/HCPCS: 36569; 36600; 36620; 71045; 71250; 74176; 80048; 80076; 81001; 81003; 82150; 82803; 83036; 83690; 83735; 84100; 85025; 85610; 85730; 86850; 86900; 86901; 94003; A9270; C1751; C9113; J0690; J1644; J1940; J1953; J2060; J2270; J2704; J3010; J3475; J3480; J7040; J7050; J7060